=== PATIENT | female | born 2000 | race Hispanic/Latino ===

== ENCOUNTER 2023-09-06 06:45 | Emergency (ER) | payer OTHER, SELFPAY ==
[2023-09-06] MEDS ORDERED: Ketorolac Tromethamine 30 MG/ML VIAL ONE (07:24)
[2023-09-06] MEDS ORDERED: Ondansetron PF 4 MG/2 ML Vial ONE (07:24)
[2023-09-06 08:05] LABS: Bilirubin Neg (Negative); Blood, Urine Negative (Negative); Clarity Clear (Clear); Glucose, Urine (Dipstick) Normal (Negative); Ketone, Urine Negative (Negative); Leukocyte 25 (Negative); Nitrite Negative (Negative); Protein, Urine (Dipstick) 30 mg/dl (Neg-Trace); Specific Gravity, Urine 1.015 (1.005-1.030); Urobilinogen Normal mg/dL (Less than 2)
[2023-09-06 08:09] LABS: Pregnancy Test - Urine (BHCG) Negative (Negative); Specific Gravity 1.015 (1.002-1.036)
[2023-09-06 08:10] LABS: Pregu Control Background? CLEAR/WHITE (CLR/WHITE); Pregu Control Bar Appear? YES (CONTROL BAR)
[2023-09-06 08:43] LABS: SARS-CoV-2 NAA Rapid Test Not Detected (NotDetected)
[2023-09-06 08:46] LABS: CAUTI Indications for Culture Pelvic or flank pain; RBC/HPF 0-3 HPF (0-3); Squamous Epithelial 0-3 HPF (0-3); WBC/HPF 0-3 HPF (0-3)
[2023-09-06 08:47] LABS: Bacteria/HPF Rare-Few HPF (None Seen); Urine Culture Reflex No No
== END 2023-09-06 09:06 | disposition home or self-care (01) ==
LOC: CSHERS 06:45
DX: R11.2 Nausea with vomiting, unspecified (principal); R10.84 Generalized abdominal pain; Z20.822 Contact with and (suspected) exposure to COVID-19
CPT/HCPCS: 81001; 81025; 96361; 96374; 96375; J1885; J2405